=== PATIENT | female | born 1985 ===

== ENCOUNTER 2018-10-30 20:13 | Emergency (ER) | payer SELFPAY ==
[2018-10-30 20:34] VITALS: BP 134/86
--- NOTE | 2018-10-30 20:54 | UC ---
General HPI - HPI Summary HPI Summary: needle stick to left index finger daley surface-patient wash hands immediately- --Patient education provided regarding risk of a sub q needle exposure through gloves---patient understands her risk is very low but would like to start PEP--- Episode happened at 1800 today patient is a debilitated senior living resident who cannot give additional history or immediate consent for testing per this patient - History of Current Complaint Chief Complaint: UCBodyFluidExposure Stated Complaint: BLOOD EXPOSURE Time Seen by Provider: 10/30/18 20:41 Hx Obtained From: Patient Hx Last Menstrual Period: 10/24/18 Onset/Duration: Sudden Onset, Lasting Hours - 3 Timing: Constant Pain Intensity: 0 - Allergy/Home Medications Allergies/Adverse Reactions: Allergies Allergy/AdvReac Type Severity Reaction Status Date / Time acetaminophen [From Vicodin] Allergy Rash Verified 10/30/18 20:23 amoxicillin Allergy Rash Verified 10/30/18 20:23 cortisone Allergy Swelling Verified 10/30/18 20:23 Of Face,Lips,& Throat hydrocodone [From Vicodin] Allergy Rash Verified 10/30/18 20:23 morphine Allergy Rash Verified 10/30/18 20:23 nitrofurantoin Allergy Rash Verified 10/30/18 20:23 [From Macrobid] Sulfa (Sulfonamide Allergy Rash Verified 10/30/18 20:23 Antibiotics) sumatriptan [From Imitrex] Allergy Rash Verified 10/30/18 20:23 Home Medications: Home Medications Codeine/Butalbital/ASA/Caffein [Fiorinal with Codeine #3 Cap] 1 each PO DAILY PRN 10/30/18 [History Confirmed 10/30/18] Meloxicam 7.5 mg PO DAILY 10/30/18 [History Confirmed 10/30/18] Orphenadrine Citrate IV* [Norflex IV*] 100 mg PO DAILY PRN 10/30/18 [History Confirmed 10/30/18] PMH/Surg Hx/FS Hx/Imm Hx Previously Healthy: Yes Neurological History: Migraine - Surgical History Surgical History: Yes Surgery Procedure, Year, and Place: tubal ligation. x3 - Family History Known Family History: Positive: None - Social History Occupation: Employed Full-time Lives: With Family Alcohol Use: None Substance Use Type: None Smoking Status (MU): Never Smoked Tobacco - Immunization History Most Recent Tetanus Shot: up to date Review of Systems All Other Systems Reviewed And Are Negative: Yes Constitutional: Positive: Negative Skin: Positive: Other - puncture wound left index finger palm surface Eyes: Positive: Negative ENT: Positive: Negative Respiratory: Positive: Negative Cardiovascular: Positive: Negative Gastrointestinal: Positive: Negative Genitourinary: Positive: Negative Motor: Positive: Negative Neurovascular: Positive: Negative Musculoskeletal: Positive: Negative Neurological: Positive: Negative Psychological: Positive: Negative Is Patient Immunocompromised?: No Physical Exam Triage Information Reviewed: Yes Appearance: Well-Appearing, No Pain Distress, Well-Nourished Vital Signs: Initial Vital Signs Temp 98.7 F 10/30/18 20:27 Pulse 91 10/30/18 20:27 Resp 18 10/30/18 20:27 BP 134/86 10/30/18 20:27 Pulse Ox 100 10/30/18 20:27 Vital Signs Reviewed: Yes Eye Exam: Normal Eyes: Positive: Conjunctiva Clear ENT Exam: Normal ENT: Positive: Normal ENT inspection, Hearing grossly normal. Negative: Trismus , Muffled voice, Hoarse voice Dental Exam: Normal Neck exam: Normal Neck: Positive: Supple, Nontender Respiratory Exam: Normal Respiratory: Positive: No respiratory distress, No accessory muscle use Cardiovascular Exam: Normal Cardiovascular: Positive: RRR, Pulses Normal, Brisk Capillary Refill Musculoskeletal Exam: Normal Musculoskeletal: Positive: Strength Intact, ROM Intact, No Edema Neurological Exam: Normal Neurological: Positive: Alert, Muscle Tone Normal Psychological Exam: Normal Skin: Positive: Other - puncture wound palm surface left 5th finger Course/Dx - Course Course Of Treatment: pep, follow with Dr. Adan off work rest--testing on sourse patient if possible - Diagnoses Provider Diagnosis: Needle stick injury of finger of left hand Discharge - Sign-Out/Discharge Documenting (check all that apply): Patient Departure All imaging exams completed and their final reports reviewed: No Studies - Discharge Plan Condition: Stable Disposition: HOME Prescriptions: Emtricitabine/Tenofovir (Tdf) [Truvada 200 mg-300 mg Tablet] 1 each PO DAILY # 25 tablet Ondansetron ODT TAB* [Zofran 4 MG Odt TAB*] 4 mg PO Q6H PRN #15 tab.odt PRN Reason: Nausea/Vomiting Raltegravir* [Isentress*] 400 mg PO BID 25 Days #50 tab Patient Education Materials: Needle Stick Injuries (ED), Postexposure Prophylaxis (ED) Forms: *Work Release Referrals: Keon MAURICE,Justin Patrick [Medical Doctor] - 3 Days - Billing Disposition and Condition Condition: STABLE Disposition: Home
[2018-10-30] MEDS ORDERED: Tenofovir/Emtricitab 200/300 * TAB PO ONE ×2 (20:58→20:59)
[2018-10-30] MEDS ORDERED: Raltegravir* 400 MG TAB PO ONE (21:00)
[2018-10-30] MEDS ORDERED: Ondansetron ODT TAB* 4 MG PO ONE (21:17)
[2018-10-31 15:22] LABS: ABS Basophils 0.1 10^3/ul (0-0.2); ABS Eosinophils 0.2 10^3/ul (0-0.6); ABS Monocytes 0.3 10^3/ul (0-0.8); ABS Neutrophils 2.7 10^3/ul (1.5-7.7); ABS Nucleated RBC 0 10^3/ul; Eosinophil % 4.6 %; Hematocrit 34 % (35-47); Mean Corpuscular HGB Conc 32 g/dl (31-36); Mean Corpuscular Hemoglobin 26 pg (27-31); Mean Corpuscular Volume 80 fL (80-97); Mean Platelet Volume 9.1 fL (7.4-10.4); Nucleated Red Blood Cells % 0.1; Platelet Count 401 10^3/ul (150-450); Red Blood Count 4.25 10^6/ul (4.00-5.40); Red Cell Distribution Width 14 % (10.5-15); White Blood Count 5.3 10^3/ul (3.5-10.8)
[2018-10-31 16:06] LABS: EGFR Non-African American 86.3 (>60)
--- NOTE | 2018-11-01 16:53 | UC ---
- Progress Note Progress Note: 11/01/2018 Pt w/ a neddle stick exposure. Hep C AB=negative Hep B surf AB= Immune HIV 1&2=negative No change Fransisca Elizondo PA-C Course/Dx - Diagnoses Provider Diagnoses: Needle stick injury of finger of left hand Discharge - Sign-Out/Discharge Documenting (check all that apply): Patient Departure - D/C home All imaging exams completed and their final reports reviewed: No Studies - Discharge Plan Condition: Stable Disposition: HOME Prescriptions: Emtricitabine/Tenofovir (Tdf) [Truvada 200 mg-300 mg Tablet] 1 each PO DAILY # 25 tablet Ondansetron ODT TAB* [Zofran 4 MG Odt TAB*] 4 mg PO Q6H PRN #15 tab.odt PRN Reason: Nausea/Vomiting Raltegravir* [Isentress*] 400 mg PO BID 25 Days #50 tab Patient Education Materials: Needle Stick Injuries (ED), Postexposure Prophylaxis (ED) Forms: *Work Release Referrals: Keon MAURICE,Justin Patrick [Medical Doctor] - 3 Days - Billing Disposition and Condition Condition: STABLE Disposition: Home
== END 2018-10-30 22:12 | disposition home or self-care (01) ==
LOC: UCEAST 20:13
DX: S61.231A Puncture wound without foreign body of left index finger without damage to nail, initial encounter (principal); W46.1XXA Contact with contaminated hypodermic needle, initial encounter; Y93.F9 Activity, other caregiving; Y92.9 Unspecified place or not applicable; Y99.0 Civilian activity done for income or pay; Z88.6 Allergy status to analgesic agent; Z88.5 Allergy status to narcotic agent; Z88.0 Allergy status to penicillin; Z88.2 Allergy status to sulfonamides
CPT/HCPCS: 36415; 80053; 81003; 84702; 85025; 86703; 86706; 86803; 87340; 99203; A9270-GY; G0463